=== PATIENT | male | born 1965 | race African-American/Black ===

== ENCOUNTER 2017-03-11 15:20 | Emergency (ER) | payer OTHER ==
[~2017-03-11] VITALS: Ht 195.6 cm; Wt 100.2 kg
[2017-03-11] MEDS ORDERED: KEFLEX500 MG PO (18:57)
[2017-03-11 19:42] VITALS: BP 128/64
== END 2017-03-11 19:42 | disposition home or self-care (01) ==
LOC: EME 15:20
DX: L03.115 Cellulitis of right lower limb (principal); M25.571 Pain in right ankle and joints of right foot; M79.89 Other specified soft tissue disorders; X50.1XXA Overexertion from prolonged static or awkward postures, initial encounter; Y92.480 Sidewalk as the place of occurrence of the external cause
CPT/HCPCS: 73610; 73630; 93971; 99281; 99283